=== PATIENT | female | born 1965 | race Caucasian/White ===

== ENCOUNTER 2017-09-20 09:14 | Emergency (ER) | payer OTHER ==
[~2017-09-20] VITALS: Ht 157.5 cm; Wt 86.0 kg
[~2017-09-20 09:14] MED LIST: CITA20TA4 PO; FLUT1SPR9 EACH NARE; HYDR1CAP30 PO; LAMO100 PO; QUET1TAB8 PO; ZANT150T2 PO
[2017-09-20 09:17] VITALS: BP 161/76; PULSE 87; RESP 18; TEMP 98.5; O2SAT 99
[2017-09-20] MEDS ORDERED: DEXAMETHASONE SOD PHOS 4 MG/ML VIAL IM ONE (09:30)
--- NOTE | 2017-09-20 09:33 | PD ---
HPI Chief Complaint: ENT Complaint Time Seen by Provider: 09:22 Travel History International Travel<30 days: No Contact w/Intl Traveler<30days: No Traveled to known affect area: No History of Present Illness HPI 52-year-old female presents emergency department for evaluation of left ear pain 5 days. Patient states she was diagnosed with an ear infection. She has been taking amoxicillin but her pain is only gotten worse. She denies any trauma. She denies any fever or chills. She denies any other upper respiratory symptoms. Pain is constant, throbbing. She has no other symptoms to report. PFSH Past Medical History Anxiety: Yes Depression: Yes Diabetes: No Diminished Hearing: Yes Gastrointestinal Disorders: Yes (CORROSIVE ESOPHAGITIS) Musculoskeletal: Yes Psychiatric: Yes (PANIC ATTACKS, PTSD) Respiratory: Yes (BRONCHITIS) Immunizations Current: No Menopausal: Yes : 3 Para: 3 Past Surgical History Section: Yes (X3) Gynecologic Surgery: Yes Neurologic Surgery: Yes (DISC SURGERY ) Other Surgery: Yes (BACK SURGERY ) Social History Alcohol Use: No Tobacco Use: Yes (1/2 PPD ) Substance Use: No Allergies-Medications (Allergen,Severity, Reaction): Coded Allergies: Sulfa (Sulfonamide Antibiotics) (Verified Allergy, Severe, HIVES, 09/20/17) cefaclor (Verified Allergy, Severe, HIVES, 09/20/17) azithromycin (Verified Allergy, Mild, Rash, 09/20/17) acetaminophen (Verified Adverse Reaction, Mild, ITCHY, 09/20/17) hydrocodone (Verified Adverse Reaction, Mild, ITCHY, 09/20/17) Reported Meds & Prescriptions Reported Meds & Active Scripts Active Ibuprofen 600 Mg Tab 600 Mg PO Q8HR PRN Ciprodex Otic Drops (Ciprofloxacin-Dexamethasone Otic Drops) 0.3-0.1% Susp 4 Drop LEFT EAR BID Augmentin (Amoxicillin-Clavulanate) 875-125 Mg Tab 1 Tab PO BID 10 Days Reported Omeprazole 20 Mg Tab 20 Mg PO BID Hydroxyzine Pamoate 25 Mg Cap 25 Mg PO Q4HR Citalopram (Citalopram Hydrobromide) 20 Mg Tab 20 Mg PO DAILY Lamictal (Lamotrigine) 100 Mg Tab 100 Mg PO BID Quetiapine (Quetiapine Fumarate) 100 Mg Tab 100 Mg PO HS Review of Systems Except as stated in HPI: all other systems reviewed are Neg Physical Exam Narrative GENERAL: Well-nourished, well-developed female patient in no acute distress SKIN: Focused skin assessment warm/dry. HEAD: Normocephalic. No mastoid tenderness EARS: Bilateral pinnae and right external canals appear within normal limits right tympanic membranes without erythema, dullness or perforation. Left external canal is edematous. The tympanic membrane is bulging and erythematous. Small purulent effusion. ENT: Mucosa pink and moist. No erythema or exudates. No uvular edema. No uvular , palatal, or tonsillar deviation. Airway patent. Nasal turbinates appear normal without nasal blood, purulent drainage or septal hematoma. EYES: No scleral icterus. No injection or drainage. NECK: Supple, trachea midline. No JVD or lymphadenopathy. CARDIOVASCULAR: Regular rate and rhythm without murmurs, gallops, or rubs. RESPIRATORY: Breath sounds equal bilaterally. No accessory muscle use. Data Data Last Documented VS Vital Signs Date Time Temp Pulse Resp B/P (MAP) Pulse Ox O2 Delivery O2 Flow Rate FiO2 09/20/17 09:17 98.5 87 18 161/76 (104) 99 Orders Orders Dexamethasone Inj (Decadron Inj) (09/20/17 09:30) Ed Discharge Order (09/20/17 09:37) MDM Medical Decision Making Medical Screen Exam Complete: Yes Emergency Medical Condition: Yes Medical Record Reviewed: Yes Differential Diagnosis Otitis media versus externa versus tympanic membrane rupture versus mastoiditis Narrative Course 52-year-old female presents emergency department for evaluation of left ear pain. Patient has and edematous external canal on the left with the bulging, erythematous left tympanic membrane. This is a small purulent effusion. I will change the patient's antibiotic to Augmentin as well as some eardrops. Patient is encouraged to follow-up with the primary care provider. She agrees to return immediately with acute worsening symptoms. Diagnosis Primary Impression: Left otitis media with effusion Additional Impression: Otitis externa Qualified Codes: H60.502 - Unspecified acute noninfective otitis externa, left ear Referrals: Primary Care Physician Patient Instructions: Ear Infection (ED), General Instructions Additional Instructions: Avoid Q-tip use Avoid water submersion Follow-up with a primary care provider Stop amoxicillin Start your new antibiotic today and take it until it is all gone Return immediately with acute worsening of symptoms Med/Other Pt SpecificInfo: Prescription(s) given Scripts Ibuprofen (Ibuprofen) 600 Mg Tab 600 MG PO Q8HR Y for PAIN, #30 TAB 0 Refills Prov: Sirisha Tai 09/20/17 Ciprofloxacin-Dexamethasone Otic Drops (Ciprodex Otic Drops) 0.3-0.1% Susp 4 DROP LEFT EAR BID for Infection, #1 BOTTLE 0 Refills Prov: Sirisha Tai 09/20/17 Amoxicillin-Clavulanate (Augmentin) 875-125 Mg Tab 1 TAB PO BID for Infection for 10 Days, #20 TAB 0 Refills Prov: Sirisha Tai 09/20/17 Disposition: 01 DISCHARGE HOME Condition: Stable Sirisha Tai Sep 20, 2017 09:33
[2017-09-20] MEDS ORDERED: OMEP20TA93 PO (09:38)
[2017-09-20] MEDS ORDERED: HYDR1CAP30 PO (09:38)
[2017-09-20] MEDS ORDERED: AUGM875T3 PO (09:42)
[2017-09-20] MEDS ORDERED: CIPR0.3S LEFT EAR (09:42)
[2017-09-20] MEDS ORDERED: IBUP-232 PO (09:43)
== END 2017-09-20 10:07 | disposition home or self-care (01) ==
LOC: NEPD 09:14
DX: H65.92 Unspecified nonsuppurative otitis media, left ear (principal); H60.502 Unspecified acute noninfective otitis externa, left ear; F41.8 Other specified anxiety disorders; F17.200 Nicotine dependence, unspecified, uncomplicated; Z87.39 Personal history of other diseases of the musculoskeletal system and connective tissue; Z87.19 Personal history of other diseases of the digestive system; Z86.59 Personal history of other mental and behavioral disorders
CPT/HCPCS: 96372; 99283; J1100